=== PATIENT | female | born 1945 | race Two or more races ===

== ENCOUNTER 2022-05-04 10:56 | Outpatient (REF) | payer MEDICARE, MEDICAID, SELFPAY ==
--- NOTE | ~2022-05-04 | MM_ITS ---
EXAMINATION: MM SCREENING DIGITAL BREAST TOMOSYNTHESIS, BILATERAL CLINICAL INFORMATION: Screening. Asymptomatic. The lifetime risk of breast cancer based on the Tyrer-Cuzick Model is 4%. COMPARISON: Mammography: 07/17/2017, 05/27/2015 TECHNIQUE: Digital breast tomosynthesis is performed in both the craniocaudal and mediolateral oblique views along with computer-aided detection (CAD). Synthesized 2D images are generated from the tomosynthesis. FINDINGS: There are scattered areas of fibroglandular density (ACR BI-RADS breast composition Category b). There are no significant masses, abnormal calcifications, or other abnormalities. Parenchymal pattern is similar to prior studies. The axilla and skin contours are unremarkable. MM/MM tomosynthesis screening BI IMPRESSION: No mammographic evidence of malignancy. ASSESSMENT: BI-RADS 1: Negative RECOMMENDATION: Routine annual mammography screening. This patient's information was entered into a reminder system with a target due date for their next mammogram.
== END 2022-05-04 10:57 | disposition home or self-care (01) ==
LOC: HO.MAMMO 10:56
PROVIDERS: PCP Internal Medicine; Visit Provider Internal Medicine
DX: Z12.31 Encounter for screening mammogram for malignant neoplasm of breast (principal)
CPT/HCPCS: 77063; 77067

== ENCOUNTER 2022-06-01 12:02 | Outpatient (REF) | payer MEDICARE, MEDICAID, SELFPAY ==
[2022-06-01 14:12] LABS: Hematocrit 38.3 % (37.0-47.0); Mean Corpuscular HGB Conc 31.3 g/dl (31.0-35.0); Mean Corpuscular Hemoglobin 27.6 pg (27.0-33.0); Mean Platelet Volume 11.3 fL (9.4-12.3); Platelet Count 278 X10*3/uL (160-400); Red Blood Count 4.35 X10*6/uL (4.20-5.50); Red Cell Distribution Width 13.8 % (11.0-16.0)
[2022-06-01 14:23] LABS: Alanine Aminotransferase 9 U/L (0-31); Albumin Level 4.9 g/dL (3.5-5.0); Alkaline Phosphatase 87 U/L (39-117); Anion Gap 15 (12-20); Aspartate Amino Transferase 20 U/L (5-31); Bilirubin Total 0.3 mg/dL (0.0-1.0); Blood Urea Nitrogen 16 mg/dL (9-16); Calcium 10.1 mg/dL (8.4-10.2); Carbon Dioxide 29 mmol/L (22-29); Chloride 103 mmol/L (96-108); Cholesterol 209 mg/dL; Estimated Glomerular Filt Rate > 60; Glucose Fasting 100 mg/dL (60-99); HDL Cholesterol 68 mg/dL; LDL Cholesterol Calculated 123 mg/dl; Potassium 4.5 mmol/L (3.3-5.1); Sodium 142 mmol/L (135-145); Total Protein 7.7 g/dL (6.5-8.0); Triglycerides 93 mg/dL
[2022-06-01 14:44] LABS: TSH reflex Free T4 0.64 uIU/mL (0.32-4.0)
== END 2022-06-01 12:03 | disposition home or self-care (01) ==
LOC: HO.WFDLDS 12:02
PROVIDERS: Visit Provider Hospitalist
DX: Z00.00 Encounter for general adult medical examination without abnormal findings (principal)
CPT/HCPCS: 36415; 80053; 80061; 84443; 85027

== ENCOUNTER 2022-10-01 12:53 | Outpatient (REF) | payer MEDICARE, MEDICAID, SELFPAY ==
[2022-10-05 16:33] LABS: Vitamin D 25-OH, D2 <4 ng/mL; Vitamin D 25-OH, D3 18 ng/mL; Vitamin D 25-OH, Total 18 ng/mL (30-100)
== END 2022-10-01 12:54 | disposition home or self-care (01) ==
LOC: HO.LAB 12:53
PROVIDERS: PCP Hospitalist; Visit Provider Hospitalist
DX: E55.9 Vitamin D deficiency, unspecified (principal)
CPT/HCPCS: 36415; 82306

== ENCOUNTER 2023-06-18 15:50 | Outpatient (REF) | payer MEDICARE, MEDICAID, SELFPAY ==
--- NOTE | ~2023-06-18 | MM_ITS ---
EXAMINATION: MM SCREENING DIGITAL BREAST TOMOSYNTHESIS, BILATERAL CLINICAL INFORMATION: Screening. Asymptomatic. COMPARISON: Mammography: This study is compared with prior exams dating back to 2015. TECHNIQUE: Digital breast tomosynthesis is performed in both the craniocaudal and mediolateral oblique views along with computer-aided detection (CAD). Synthesized 2D images are generated from the tomosynthesis. FINDINGS: There are scattered areas of fibroglandular density (ACR BI-RADS breast composition Category b). There are no significant masses, abnormal calcifications, or other abnormalities. MM/MM tomosynthesis screening BI IMPRESSION: No mammographic evidence of malignancy. ASSESSMENT: BI-RADS BI-RADS 1 - Negative RECOMMENDATION: Routine annual mammography screening. 1 year F/U This examination should not preclude the clinical evaluation of a suspicious palpable abnormality. This patient's information was entered into a reminder system with a target due date for their next mammogram.
== END 2023-06-18 15:51 | disposition home or self-care (01) ==
LOC: HO.MAMMO 15:50
PROVIDERS: Visit Provider Hospitalist
DX: Z12.31 Encounter for screening mammogram for malignant neoplasm of breast (principal)
CPT/HCPCS: 77063; 77067

== ENCOUNTER → 2023-06-18 16:00 | Outpatient (BNV) | payer MEDICARE, MEDICAID, SELFPAY | PROVIDERS: Visit Provider Radiology Diagnostic Radiology | DX: Z12.31 Encounter for screening mammogram for malignant neoplasm of breast (principal) | CPT/HCPCS: 77063; 77067 ==

== ENCOUNTER 2023-07-26 12:57 | Outpatient (AMB) | payer MEDICARE, MEDICAID, SELFPAY ==
[2023-07-26 13:12] VITALS: BP 180/70; PULSE 66; RESP 13; TEMP 36.3; O2SAT 99; BMI 21.4
--- NOTE | 2023-07-26 13:12 | MHC.PC.OV ---
Vital Signs 07/26/23 13:12 Height 4 ft 9 in Weight 99 lb BMI 21.4 BP 180/70 H Blood Pressure Location Rt brachial Position Sitting Respiration 13 Pulse 66 Pulse Source Pulse Oximeter Temp 97.3 F Temp Source Temporal Artery Scan Pulse Oximetry (%) 99 Intake Visit Reasons: Transfer from -6M Follow up Intake Note: Patient is requestin muna if there is sanyway to get amlodipine and lisinopril to have more refills due to patient going to [place] [facility]. Patient states that her insurance hasnt covered her Vitamin D2 and would like alternative. 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 Accompanied by: Daughter Allergies No Known Allergies Allergy (Verified 07/26/23 13:43) Medication List - Last Reconciled 07/26/23 by Jose Trinidad CNP amlodipine 2.5 mg PO DAILY blood pressure monitor As directed cholecalciferol (vitamin D3) 1,250 mcg PO QWEEK lisinopril 20 mg PO DAILY Tobacco use date assessed: 07/26/23 Fall risk assessment: No Falls in past year Last assessed Fall Risk: 07/26/23 Dental Screening Dental Screen Date: 07/26/23 Did you have a dental visit in the last 12 months?: Yes Did you have a dental problem in the last 6 months where you did not have access to dental care?: No Was dental information given to patient?: Patient has dentist HPI HPI Comments History of Present Illness Details 77-year-old Togolese speaking female, accompanied by her daughter, presents for transfer of care Her former PCP is who is no longer with the practice She has history of hypertension and vitamin-D deficiency She is on amlodipine, lisinopril. She admits to taking her medications as prescribed without adverse reactions She notes she has not taken prescribed vitamin D3 because her health plan did not cover the medication. She has been taking otc vitamin supplement She notes that she was on four classes of antihypensives but her former PCP reduced it to 2 classes in an effort to wean off the medications She offers no complaints and denies acute symptoms at this time Last mammogram was in 06/2023: normal She notes that she no longer performs colonoscopy and pap smear test She states that her last dexa scan was 10 years ago: normal She is unsure whether she was vaccinated for PNA [facility] Medical History No pertinent past medical history Surgical History No pertinent past surgical history Social History Housing: House Patient Tobacco Use Status: Never used Tobacco e-Cigarette/Vaping Use: Never Used Second Hand Smoke Exposure: No service: No Current occupational status: retired Current occupational exposures/hazards: No Cognitive needs: No Hearing needs: No Vision needs: No Questionnaire Thrive Questionnaire Date Thrive assessed: 06/25/22 KWAKU-7 AMB Questionnaire KWAKU-7 Date KWAKU - 7 assessed: 06/01/22 Source: Developed by Drs. Woodrow Kimble, Lisandra Nichols, Yaya Stapleton and colleagues, with an educational andrea from [employer]. Review of Systems Const Details: Const Denies chills, Denies fatigue, Denies fever(s), Denies headache(s) and Denies weakness ENT Denies dizziness and Denies headache(s) Card Denies chest pain, Denies lightheadedness, Denies dyspnea and Denies other (Palpitations) Resp Denies cough, Denies dyspnea, Denies wheezing and Denies other ( shortness of breath) GI Denies abdominal pain, Denies melena, Denies hematochezia, Denies change in bowel habits, Denies dyspepsia and Denies nausea Denies hematuria and Denies dysuria Musc Denies abnormal gait, Denies myalgias, Denies arthralgias, Denies numbness and Denies tingling Skin/Breast Denies rash, Denies unusual bruising and Denies wounds Neuro Denies abnormal gait, Denies dizziness, Denies headache(s), Denies memory loss, Denies numbness, Denies Sensory deficit (Neuro), Denies tingling and Denies weakness Psych Denies anxiety, Denies depression, Denies memory loss Endo Denies cold intolerance, Denies fatigue, Denies heat intolerance, Denies polydipsia and Denies polyuria Aller/Immun Denies wheezing Physical exam (Primary Care) Vital Signs: Last Vital Signs Temp 97.3 F 07/26/23 13:12 Pulse 66 07/26/23 13:12 Resp 13 07/26/23 13:12 BP 180/70 H 07/26/23 13:12 Pulse Ox 99 07/26/23 13:12 BMI result Body Mass Index 21.4 Tobacco/Smoking Status: Tobacco use Status Tobacco use date assessed 07/26/23 07/26/23 13:25 Patient Tobacco Use Status Never used Tobacco 07/26/23 13:25 e-Cigarette/Vaping Use Never Used 07/26/23 13:25 Thrive Assessment: Date of Thrive Assessment Date Thrive assessed 06/25/22 07/26/23 13:25 Const Other: General: no acute distress and well developed Nutritional Appearance: well nourished Orientation/consciousness: patient oriented x3 HENMT Head: Yes normocephalic and Yes atraumatic Eyes General: appearance normal, both eyes and all related structures Pupils: Equal, round and reactive pupils present EOM: EOMs intact bilaterally Resp Effort & Inspection: normal respiratory effort Auscultation: clear to auscultation bilaterally Cardio Rate: regular rate Rhythm: regular rhythm Heart sounds: S1 normal heart sound present, S2 normal heart sound present, no gallops, no murmurs and no rubs GI Palpation (GI): No Abdominal aortic bruit present, Soft to palpation, nontender, No hepatosplenomegaly present and No Rebound tenderness present Auscultation: normal bowel sounds General: Yes no CVA tenderness Back/Spine/Pelvis Back: no CVA tenderness Cervical Spine: cervical ROM normal and No Cervical spine tenderness Thoracic/Lumbar Spine: thoraco-lumbar ROM normal, No pain with thoraco-lumbar ROM, No thoracic spinal tenderness and No lumbar spinal tenderness Extrem General: Yes normal to inspection, No edema and No calf tenderness Skin General: warm and dry. Normal skin color. Normal skin turgor Lesions: no lesions Rashes: no rashes Trauma: no lacerations or abrasions Wounds: no wounds Nails: normal Neuro General: patient oriented x3, gait normal and no focal neuro deficit Cranial nerves: Yes Equal, round and reactive pupils present Cognition (Neuro): normal cognition Gait exam (Neuro): Normal gait present Sensory Exam: No Sensory deficit (Neuro) Psych Appearance: grossly normal Affect: normal affect Attitude: cooperative Thought process: Normal thought process present Assessment and Plan Assessment & Plan (1) Hypertension: Code(s): I10 - Essential (primary) hypertension Qualifiers: Hypertension type: primary hypertension Qualified Code(s): I10 - Essential (primary) hypertension Plan: Resting blood pressure is 180/70, above goal of less than 140/90 Will increase amlodipine to 5 mg daily. Advised to take amlodipine and lisinopril as prescribed Low-sodium diet encouraged Follow-up for nurse visit for blood pressure check in 1 week Return in 2 weeks or sooner with symptoms or concerns Verbalized understanding and agreed with the treatment plan Interpretation by the patient's daughter per patient's preference (2) Laboratory tests ordered as part of a complete physical exam (CPE): Code(s): Z00.00 - Encounter for general adult medical examination without abnormal findings Plan: Fasting labs ordered as part of a complete physical exam. Advised to fast for at least 10 hours before getting labs drawn. May drink water Verbalized understanding and agreed with treatment plan. Orders: Orders Comprehensive [place]. Panel Fast Today Z00.00 - Encounter for general adult medical examination without abnormal findings Lipid Panel Today Z00.00 - Encounter for general adult medical examination without abnormal findings Complete Blood Count Auto Diff Today Z00.00 - Encounter for general adult medical examination without abnormal findings TSH reflex Free T4 Today Z00.00 - Encounter for general adult medical examination without abnormal findings UA CC w/rflx Micro + Cult Today Z00.00 - Encounter for general adult medical examination without abnormal findings Vitamin D 25-OH Total Today Z00.00 - Encounter for general adult medical examination without abnormal findings Medications: New amlodipine 5 mg PO DAILY 30 days 30 tabs 3RF Changed From lisinopril 20 mg PO DAILY 90 tabs 0RF I10 - Essential (primary) hypertension To lisinopril 20 mg PO DAILY I10 - Essential (primary) hypertension Coding Level of Care Code Est Pt Level 4 (61457) Diagnoses Primary hypertension I10 Hypertension type: primary hypertension Laboratory tests ordered as part of a complete physical exam (CPE) Z00.00
== END 2023-07-26 14:10 | disposition home or self-care (01) ==
PROVIDERS: PCP Nurse Practitioner Family; Visit Provider Nurse Practitioner Family
DX: I10 Essential (primary) hypertension (principal); Z00.00 Encounter for general adult medical examination without abnormal findings
CPT/HCPCS: 99214

== ENCOUNTER 2023-08-13 15:52 | Outpatient (AMB) | payer MEDICARE, MEDICAID, SELFPAY ==
[2023-08-13 15:55] VITALS: BP 174/68; PULSE 82; RESP 13; TEMP 36.6; O2SAT 99; BMI 21.4
--- NOTE | 2023-08-13 15:55 | MHC.PC.OV ---
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 Accompanied by: Daughter Allergies No Known Allergies Allergy (Verified 08/13/23 16:12) Medication List - Last Reconciled 08/13/23 by Jose Trinidad CNP amlodipine 5 mg PO DAILY 30 days blood pressure monitor As directed cholecalciferol (vitamin D3) 1,250 mcg PO QWEEK lisinopril 20 mg PO DAILY Tobacco use date assessed: 07/26/23 Fall risk assessment: No Falls in past year Last assessed Fall Risk: 08/13/23 Dental Screening Dental Screen Date: 08/13/23 Did you have a dental visit in the last 12 months?: Yes Did you have a dental problem in the last 6 months where you did not have access to dental care?: No Was dental information given to patient?: Patient has dentist HPI HPI Comments History of Present Illness Details 77-year-old Moroccan female, accompanied by her daughter, presents for hypertension follow-up She transferred care over 2 weeks ago. Amlodipine was increased to 5 mg daily. She was advised to take amlodipine and lisinopril as prescribed. She notes she has been taking her medications as prescribed without adverse reactions She did not follow-up for nurse visit for blood pressure check as planned. She notes that she was in [place] for a family emergency and returned yesterday She admits to eating significant amount of salt She notes that she is flying to [place] on 08/20/2023 and will return in 3 months She offers no complaints and denies acute symptoms at this time [facility] Medical History No pertinent past medical history Surgical History No pertinent past surgical history Social History Housing: House Patient Tobacco Use Status: Never used Tobacco e-Cigarette/Vaping Use: Never Used Second Hand Smoke Exposure: No service: No Current occupational status: retired Current occupational exposures/hazards: No Cognitive needs: No Hearing needs: No Vision needs: No Questionnaire Thrive Questionnaire Date Thrive assessed: 06/25/22 KWAKU-7 AMB Questionnaire KWAKU-7 Date KWAKU - 7 assessed: 06/01/22 Source: Developed by Drs. Woodrow Kimble, Lisandra Nichols, Yaya Stapleton and colleagues, with an educational andrea from [employer]. Review of Systems Const Details: Const Denies chills, Denies fatigue, Denies fever(s), Denies headache(s) and Denies weakness ENT Denies dizziness and Denies headache(s) Card Denies chest pain, Denies lightheadedness, Denies dyspnea and Denies other (Palpitations) Resp Denies cough, Denies dyspnea, Denies wheezing and Denies other ( shortness of breath) GI Denies abdominal pain, Denies melena, Denies hematochezia, Denies change in bowel habits, Denies dyspepsia and Denies nausea Denies hematuria and Denies dysuria Musc Denies abnormal gait, Denies myalgias, Denies arthralgias, Denies numbness and Denies tingling Skin/Breast Denies rash, Denies unusual bruising and Denies wounds Neuro Denies abnormal gait, Denies dizziness, Denies headache(s), Denies memory loss, Denies numbness, Denies Sensory deficit (Neuro), Denies tingling and Denies weakness Psych Denies anxiety, Denies depression, Denies memory loss Endo Denies cold intolerance, Denies fatigue, Denies heat intolerance, Denies polydipsia and Denies polyuria Aller/Immun Denies wheezing Physical exam (Primary Care) Vital Signs: Last Vital Signs Temp 97.8 F 08/13/23 15:55 Pulse 82 08/13/23 15:55 Resp 13 08/13/23 15:55 BP 174/68 H 08/13/23 15:55 Pulse Ox 99 08/13/23 15:55 Oxygen Delivery Method Room Air 08/13/23 15:55 BMI result Body Mass Index 21.4 Tobacco/Smoking Status: Tobacco use Status Tobacco use date assessed 07/26/23 08/13/23 16:00 Patient Tobacco Use Status Never used Tobacco 08/13/23 16:00 e-Cigarette/Vaping Use Never Used 08/13/23 16:00 Thrive Assessment: Date of Thrive Assessment Date Thrive assessed 06/25/22 08/13/23 16:00 Const Other: General: no acute distress and well developed Nutritional Appearance: well nourished Orientation/consciousness: patient oriented x3 HENMT Head: Yes normocephalic and Yes atraumatic Eyes General: appearance normal, both eyes and all related structures Pupils: Equal, round and reactive pupils present EOM: EOMs intact bilaterally Resp Effort & Inspection: normal respiratory effort Auscultation: clear to auscultation bilaterally Cardio Rate: regular rate Rhythm: regular rhythm Heart sounds: S1 normal heart sound present, S2 normal heart sound present, no gallops, no murmurs and no rubs GI Palpation (GI): No Abdominal aortic bruit present, Soft to palpation, nontender, No hepatosplenomegaly present and No Rebound tenderness present Auscultation: normal bowel sounds General: Yes no CVA tenderness Back/Spine/Pelvis Back: no CVA tenderness Cervical Spine: cervical ROM normal and No Cervical spine tenderness Thoracic/Lumbar Spine: thoraco-lumbar ROM normal, No pain with thoraco-lumbar ROM, No thoracic spinal tenderness and No lumbar spinal tenderness Extrem General: Yes normal to inspection, No edema and No calf tenderness Skin General: warm and dry. Normal skin color. Normal skin turgor Neuro General: patient oriented x3, gait normal and no focal neuro deficit Cranial nerves: Yes Equal, round and reactive pupils present Cognition (Neuro): normal cognition Gait exam (Neuro): Normal gait present Sensory Exam: No Sensory deficit (Neuro) Psych Appearance: grossly normal Affect: normal affect Attitude: cooperative Thought process: Normal thought process present Assessment and Plan Assessment & Plan (1) Hypertension: Code(s): I10 - Essential (primary) hypertension Qualifiers: Hypertension type: primary hypertension Qualified Code(s): I10 - Essential (primary) hypertension Plan: Resting blood pressure is 158/60, above goal of less than 140/90 Will increase amlodipine to 10 mg daily. Take as prescribed Continue to take lisinopril as prescribed Low-sodium diet and routine exercise encouraged Follow-up in 1 week or return sooner with symptoms or concerns Verbalized understanding and agreed with treatment plan Interpretation by the patient's daughter per patient's preference Medications: New amlodipine 10 mg PO DAILY 90 days 90 tabs 1RF miscellaneous medical supply 1 BP cuff and monitor for daily BP check 1 ea 0RF hypertension Changed From cholecalciferol (vitamin D3) 1,250 mcg PO QWEEK 14 caps 3RF E55.9 - Vitamin D deficiency, unspecified To cholecalciferol (vitamin D3) 1,250 mcg PO QWEEK E55.9 - Vitamin D deficiency, unspecified Discontinued amlodipine Discontinued Reason: Doctor's Order 5 mg PO DAILY 30 days 30 tabs 3RF Coding Level of Care Code Est Pt Level 3 (23324) Diagnoses Primary hypertension I10 Hypertension type: primary hypertension
[2023-08-13 16:11] VITALS: BP 158/60
== END 2023-08-13 16:25 | disposition home or self-care (01) ==
PROVIDERS: Visit Provider Nurse Practitioner Family
DX: I10 Essential (primary) hypertension (principal)
CPT/HCPCS: 99213

== ENCOUNTER 2023-08-15 10:18 | Outpatient (REF) | payer MEDICARE, MEDICAID, SELFPAY ==
[2023-08-15 10:45] LABS: MANUAL DIFF FLAG NO
[2023-08-15 11:02] LABS: Basophils Absolute Auto 0.1 X10*3/uL (0.0-0.2); Basophils Percent Auto 1.1 % (0-2); Eosinophils Absolute Auto 0.1 X10*3/uL (0.0-0.4); Eosinophils Percent Auto 0.9 % (0-4); Hematocrit 35.9 % (37.0-47.0); Hemoglobin 11.4 g/dl (12.0-16.0); Imm Gran Abs Auto 0.02 X10*3/uL (0.00-0.03); Imm Gran Pct Auto 0.2 % (0.0-0.4); Lymphocytes Absolute Auto 3.5 X10*3/uL (1.2-4.9); Lymphocytes Percent Auto 39.6 % (20-40); Mean Corpuscular HGB Conc 31.8 g/dl (31.0-35.0); Mean Corpuscular Hemoglobin 27.9 pg (27.0-33.0); Mean Platelet Volume 10.1 fL (9.4-12.3); Monocytes Absolute Auto 0.6 X10*3/uL (0.1-1.2); Monocytes Percent Auto 6.9 % (2-11); Neutrophils Absolute Auto 4.6 x10*3/uL (2.0-8.3); Neutrophils Percent Auto 51.3 % (45-73); Platelet Count 326 X10*3/uL (160-400); Red Blood Count 4.08 X10*6/uL (4.20-5.50); Red Cell Distribution Width 13.6 % (11.0-16.0); White Blood Count 8.9 X10*3/uL (4.8-10.8)
[2023-08-15 11:46] LABS: Alanine Aminotransferase 12 U/L (0-31); Albumin Level 4.8 g/dL (3.5-5.0); Alkaline Phosphatase 96 U/L (39-117); Anion Gap 14 (12-20); Aspartate Amino Transferase 20 U/L (5-31); Bilirubin Total 0.3 mg/dL (0.0-1.0); Blood Urea Nitrogen 23 mg/dL (9-16); Calcium 10.1 mg/dL (8.4-10.2); Carbon Dioxide 27 mmol/L (22-29); Chloride 105 mmol/L (96-108); Cholesterol 209 mg/dL (<200); Estimated Glomerular Filt Rate 57; Glucose Fasting 106 mg/dL (60-99); HDL Cholesterol 78 mg/dL (>40); LDL Cholesterol Calculated 118 mg/dL (<100); Potassium 3.8 mmol/L (3.3-5.1); Sodium 142 mmol/L (135-145); Triglycerides 68 mg/dL (<150)
[2023-08-15 12:04] LABS: Vitamin D 25-OH Total 31.5 ng/mL (>30)
[2023-08-15 14:02] LABS: Appearance Urine Cloudy; Color Urine Dark Yellow; Glucose Urine UA Negative (Negative); Leukocyte Esterase Urine Small (1+) (Negative); Nitrite Urine Negative (Negative); PH 5.5 (5.0-9.0); UMIC TRIGGER UACC YES; Urine Blood Negative (Negative); Urine Ketones Trace mg/dL (Negative); Urine Protein 30 (1+) mg/dL (Neg-Trace)
[2023-08-15 14:42] LABS: Bacteria Urine None Seen (None Seen); Calcium Oxalate Crystals Urine Present; Granular Casts Urine Present; Hyaline Casts Urine >20 /LPF (0-2); RBC Urine 0-2 /HPF (0-2); UACC Culture Trigger YES
== END 2023-08-15 10:19 | disposition home or self-care (01) ==
LOC: HO.LAB 10:18
PROVIDERS: PCP Nurse Practitioner Family
DX: Z00.00 Encounter for general adult medical examination without abnormal findings (principal); Z20.2 Contact with and (suspected) exposure to infections with a predominantly sexual mode of transmission
CPT/HCPCS: 36415; 80053; 80061; 81001; 81003; 82306; 84443; 85025; 87086

== ENCOUNTER 2023-10-16 15:01 | Outpatient (AMB) | payer MEDICARE, MEDICAID, SELFPAY ==
--- NOTE | 2023-10-16 15:05 | MHC.PC.OV ---
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 Required: No Accompanied by: daughter, grandchild Allergies No Known Allergies Allergy (Verified 10/16/23 15:32) Medication List - Last Reconciled 10/16/23 by Sheridan Maier MD amlodipine 10 mg PO DAILY 90 days blood pressure monitor As directed cholecalciferol (vitamin D3) 50 mcg PO DAILY 90 days lisinopril 20 mg PO DAILY miscellaneous medical supply 1 BP cuff and monitor for daily BP check Tobacco use date assessed: 10/16/23 Fall risk assessment: No Falls in past year Last assessed Fall Risk: 10/16/23 Dental Screening Dental Screen Date: 10/16/23 Did you have a dental visit in the last 12 months?: Yes Did you have a dental problem in the last 6 months where you did not have access to dental care?: No Was dental information given to patient?: Patient has dentist HPI HPI Comments History of Present Illness Details This is a 77-year-old female with hypertension and low vitamin-D that comes to establish care. Blood pressure stable. No chest pain or shortness of breath. Labs will be order to check vitamin-D levels. Accompanied by daughter. [facility] Medical History No pertinent past medical history Surgical History History of tubal ligation Family History Mother Diabetes Hypertension Father Alzheimer disease Social History Housing: House Patient Tobacco Use Status: Never used Tobacco e-Cigarette/Vaping Use: Never Used Second Hand Smoke Exposure: No service: No Current occupational status: retired Current occupational exposures/hazards: No Cognitive needs: No Hearing needs: No Vision needs: No Questionnaire PHQ-9 Over the last 2 weeks, how often have you been bothered by any of the following problems? 1. Little interest or pleasure in doing things: not at all 2. Feeling down, depressed, or hopeless: not at all 3. Trouble falling or staying asleep, or sleeping too much: not at all 4. Feeling tired or having little energy: not at all 5. Poor appetite or overeating: not at all 6. Feeling bad about yourself - or that you are a failure or have let yourself or your family down: not at all 7. Trouble concentrating on things, such as reading the newspaper or watching television: not at all 8. Moving or speaking so slowly that other people could have noticed. Or the opposite - being so fidgety or restless that you have been moving around a lot more than usual: not at all 9. Thoughts that you would be better off or of hurting yourself in some way: not at all Total score: 0 Depression Screening Interpretation: Negative Depression Screening Done: Yes 17432 - PHQ-9 Billing: Yes Source: Developed by Drs. Woodrow Kimble, Lisandra Nichols, Yaya Stapleton and colleagues, with an educational andrea from [employer]. Thrive Questionnaire Date Thrive assessed: 10/16/23 I am a: Patient What is your living situation today?: I have a steady place to live Within the past 12 months, did the food you bought not last and you didn't have the money to get more?: Never true Within the past 12 months, did you worry whether your food would run out before you got money to buy more?: Never true Do you have trouble paying for medicines?: No Do you have trouble getting transportation to medical appointments?: No Do you have trouble paying your heating and electricity bill?: No Do you have trouble taking care of your child, family member or friend?: No Do you have trouble with day-to-day activities such as bathing, preparing meals, shopping, managing finances, etc.?: No Are you currently unemployed and looking for a job?: No Are you interested in more education?: No Please select the resources that you would like help with: None Currently or been in a relationship where the following occur: no concerns reported THRIVE Score: 0 AUDIT C Alcohol Use Questionnaire (AUDIT-C) 1. How often do you have a drink containing alcohol?: Never Total Score: 0 KWAKU-7 AMB Questionnaire KWAKU-7 Date KWAKU - 7 assessed: 10/16/23 Feeling nervous, anxious, or on edge: 0 = Not at all Not being able to stop or control worryin = Not at all Worrying too much about different things: 0 = Not at all Trouble relaxin = Not at all Being so restless that it is hard to sit still: 0 = Not at all Becoming easily annoyed or irritable: 0 = Not at all Feeling afraid as if something awful might happen: 0 = Not at all Total KWAKU-7 score (0-4 normal; 5-9 mild; 10-14 moderate; 15-21 severe): 0 Source: Developed by Drs. Woodrow Kimble, Lisandra Nichols, Yaya Stapleton and colleagues, with an educational andrea from [employer]. KWAKU-7 Assessment Billing KWAKU-7 Assessment Tool: KWAKU-7 Assessment 17886 Review of Systems Const All systems reviewed & are unremarkable except as noted in HPI and below Eyes Reports no additional complaints, Denies change in vision and Denies other visual disturbances Card Denies chest pain at rest, Denies chest pain with activity, Denies edema, Denies irregular heart rhythm, Denies claudication, Denies dyspnea, Denies dyspnea on exertion, Denies orthopnea, Denies paroxysmal nocturnal dyspnea and Denies slow heart rate Resp Denies cough, Denies dyspnea and Denies dyspnea on exertion GI Denies abdominal pain, Denies change in bowel habits, Denies excessive flatus, Denies nausea and Denies vomiting Denies urinary incontinence, Denies urinary hesitancy and Denies urinary urgency Musc Denies abnormal gait, Denies atrophy, Denies deformity and Denies limited range of motion Skin/Breast Denies bleeding lesions, Denies changing lesions and Denies rash Neuro Denies abnormal gait, Denies behavioral changes and Denies lack of coordination Psych Denies behavioral changes Physical exam (Primary Care) Vital Signs: Last Vital Signs BP 138/62 10/16/23 15:07 BMI result Body Mass Index 21.0 Tobacco/Smoking Status: Tobacco use Status Tobacco use date assessed 10/16/23 10/16/23 15:16 Patient Tobacco Use Status Never used Tobacco 10/16/23 15:16 e-Cigarette/Vaping Use Never Used 10/16/23 15:16 PHQ-9: PHQ-9 Score PHQ-9: Total score 0 10/16/23 15:16 Depression Screening Interpretation: Negative Thrive Assessment: Date of Thrive Assessment Date Thrive assessed 10/16/23 10/16/23 15:16 Currently or been in a relationship where the following occur: no concerns reported Eyes General: appearance normal, both eyes and all related structures Eyelids: Yes eyelids normal Conjunctivae: conjunctivae normal Neck Neck: Yes normal visual inspection and Yes supple Resp Effort & Inspection: normal respiratory effort Auscultation: clear to auscultation bilaterally Cardio Jugular venous distension: no JVD Rate: regular rate Rhythm: regular rhythm Heart sounds: S1 normal heart sound present and S2 normal heart sound present Extrem General: Yes full ROM Assessment and Plan Assessment & Plan (1) Hypertension: Code(s): I10 - Essential (primary) hypertension Qualifiers: Hypertension type: primary hypertension Qualified Code(s): I10 - Essential (primary) hypertension Plan: Continue lisinopril and amlodipine. Blood pressure goal is equal or less than 130/80. (2) Vitamin D deficiency: Code(s): E55.9 - Vitamin D deficiency, unspecified Plan: Continue vitamin-D supplement. Orders: Orders Comprehensive [place]. Panel Fast Today I10 - Essential (primary) hypertension Lipid Panel Today I10 - Essential (primary) hypertension Vitamin D 25-OH Total Today E55.9 - Vitamin D deficiency, unspecified Medications: Changed From lisinopril 20 mg PO DAILY I10 - Essential (primary) hypertension To lisinopril 20 mg PO DAILY 90 days 90 tabs 1RF I10 - Essential (primary) hypertension Refilled blood pressure monitor As directed 1 ea 0RF check bp twice a day I10 - Essential (primary) hypertension amlodipine 10 mg PO DAILY 90 days 90 tabs 1RF cholecalciferol (vitamin D3) 50 mcg PO DAILY 90 days 90 caps 2RF Coding Level of Care Code New Pt Level 3 (98120) Diagnoses Primary hypertension I10 Hypertension type: primary hypertension Vitamin D deficiency E55.9 Additional Codes KWAKU-7 Assessment Billing - KWAKU-7 Assessment Tool: KWAKU-7 Assessment 99845 ([id number]) Time Spent (min) 20
[2023-10-16 15:07] VITALS: BP 138/62; BMI 21.0
== END 2023-10-16 15:37 | disposition home or self-care (01) ==
PROVIDERS: PCP Nurse Practitioner Family; Visit Provider Internal Medicine
DX: I10 Essential (primary) hypertension (principal); E55.9 Vitamin D deficiency, unspecified
CPT/HCPCS: 99203

== ENCOUNTER 2023-10-18 12:21 | Outpatient (REF) | payer MEDICARE, MEDICAID, SELFPAY ==
[2023-10-18 14:12] LABS: Alanine Aminotransferase 12 U/L (0-31); Alkaline Phosphatase 91 U/L (39-117); Anion Gap 13 (12-20); Aspartate Amino Transferase 21 U/L (5-31); Bilirubin Total 0.4 mg/dL (0.0-1.0); Blood Urea Nitrogen 20 mg/dL (9-16); Calcium 10.1 mg/dL (8.4-10.2); Carbon Dioxide 25 mmol/L (22-29); Chloride 108 mmol/L (96-108); Cholesterol 195 mg/dL (<200); Estimated Glomerular Filt Rate > 60; Glucose Fasting 90 mg/dL (60-99); HDL Cholesterol 68 mg/dL (>40); LDL Cholesterol Calculated 110 mg/dL (<100); Potassium 4.1 mmol/L (3.3-5.1); Sodium 142 mmol/L (135-145); Total Protein 8.1 g/dL (6.5-8.0); Triglycerides 86 mg/dL (<150)
[2023-10-18 14:31] LABS: Vitamin D 25-OH Total 33.9 ng/mL (>30)
== END 2023-10-18 12:22 | disposition home or self-care (01) ==
LOC: HO.HMGCLDS 12:21
PROVIDERS: PCP Internal Medicine; Visit Provider Internal Medicine
DX: I10 Essential (primary) hypertension (principal); E55.9 Vitamin D deficiency, unspecified
CPT/HCPCS: 36415; 80053; 80061; 82306

== ENCOUNTER 2024-03-12 09:50 | Outpatient (AMB) | payer MEDICARE, MEDICAID, SELFPAY ==
[2024-03-12 10:08] VITALS: BP 138/64
--- NOTE | 2024-03-12 10:08 | MHC.PC.OV ---
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 Accompanied by: Daughter Allergies No Known Allergies Allergy (Verified 03/12/24 10:30) Medication List - Last Reconciled 03/12/24 by Sheridan Maier MD amlodipine 10 mg PO DAILY 90 days blood pressure monitor As directed cholecalciferol (vitamin D3) 50 mcg PO DAILY 90 days lisinopril 20 mg PO DAILY 90 days miscellaneous medical supply 1 BP cuff and monitor for daily BP check Tobacco use date assessed: 10/16/23 Fall risk assessment: No Falls in past year Last assessed Fall Risk: 03/12/24 Dental Screening Dental Screen Date: 10/16/23 HPI HPI Comments History of Present Illness Details This is a 78-year-old female that comes accompanied by daughter for her physical exam. She declines pneumococcal vaccine and Td vaccine. Labs were discussed and cholesterol medication will be added. Complains of muscle cramps in legs that happens occasionally and I will add magnesium. No chest pain or shortness on breath. [facility] Medical History (Updated 03/12/24 @ 10:43 by Sheirdan Maier MD) No pertinent past medical history Surgical History History of tubal ligation Family History Mother Diabetes Hypertension Father Alzheimer disease Social History Housing: House Patient Tobacco Use Status: Never used Tobacco e-Cigarette/Vaping Use: Never Used Second Hand Smoke Exposure: No service: No Current occupational status: retired Current occupational exposures/hazards: No Cognitive needs: No Hearing needs: No Vision needs: No Questionnaire Thrive Questionnaire Date Thrive assessed: 10/16/23 KWAKU-7 AMB Questionnaire KWAKU-7 Date KWAKU - 7 assessed: 10/16/23 Source: Developed by Drs. Woodrow Kimble, Lisandra Nichols, Yaya Stapleton and colleagues, with an educational andrea from [employer] Review of Systems Const All systems reviewed & are unremarkable except as noted in HPI and below Card Denies chest pain at rest, Denies chest pain with activity, Denies edema, Denies irregular heart rhythm, Denies claudication, Denies dyspnea, Denies dyspnea on exertion, Denies orthopnea, Denies paroxysmal nocturnal dyspnea and Denies slow heart rate Resp Denies cough, Denies dyspnea and Denies dyspnea on exertion GI Denies abdominal pain, Denies change in bowel habits, Denies excessive flatus, Denies nausea and Denies vomiting Denies urinary incontinence, Denies urinary hesitancy and Denies urinary urgency Musc Denies abnormal gait, Denies atrophy, Denies deformity and Denies limited range of motion Skin/Breast Denies bleeding lesions, Denies changing lesions and Denies rash Neuro Denies abnormal gait, Denies behavioral changes and Denies lack of coordination Psych Denies behavioral changes Physical exam (Primary Care) Vital Signs: Last Vital Signs BP 138/64 03/12/24 10:08 BMI result Body Mass Index 20.0 Tobacco/Smoking Status: Tobacco use Status Tobacco use date assessed 10/16/23 03/12/24 10:14 Patient Tobacco Use Status Never used Tobacco 03/12/24 10:14 e-Cigarette/Vaping Use Never Used 03/12/24 10:14 Thrive Assessment: Date of Thrive Assessment Date Thrive assessed 10/16/23 03/12/24 10:14 HENMN Head: Yes normal to inspection, Yes normocephalic and Yes atraumatic Ears: external ears normal Eyes General: appearance normal, both eyes and all related structures Eyelids: Yes eyelids normal Conjunctivae: conjunctivae normal Neck Neck: Yes normal visual inspection and Yes supple Resp Effort & Inspection: normal respiratory effort Auscultation: clear to auscultation bilaterally Cardio Jugular venous distension: no JVD Rate: regular rate Rhythm: regular rhythm Heart sounds: S1 normal heart sound present and S2 normal heart sound present GI Inspection: Yes normal to inspection Palpation (GI): Soft to palpation and nontender Auscultation: normal bowel sounds Skin General skin exam: no rashes or lesions noted Neuro General: no focal motor deficits Extrem General: Yes full ROM Psych Appearance: grossly normal Assessment and Plan Assessment & Plan (1) Physical exam: Code(s): Z00.00 - Encounter for general adult medical examination without abnormal findings Plan: Repeat in a year. (2) Muscle cramps: Code(s): R25.2 - Cramp and spasm Plan: Start magnesium. Orders: Orders Vitamin D 25-OH Total 6 Months E55.9 - Vitamin D deficiency, unspecified XR DEXA axial skeleton Today N95.9 - Unspecified menopausal and perimenopausal disorder Lipid Panel 6 Months E78.5 - Hyperlipidemia, unspecified Comprehensive [place]. Panel Fast 6 Months Z00.00 - Encounter for general adult medical examination without abnormal findings Medications: Refilled cholecalciferol (vitamin D3) 50 mcg PO DAILY 90 days 90 caps 2RF Review Patient declined Pneumococcal Vaccine: 03/12/24 Declined TDap/Td: 03/12/24 Coding Level of Care Code Est Pt Level 3 (21827) Est Pt Prev Care >65y(96399) Diagnoses Physical exam Z00.00 Muscle cramps R25.2 Time Spent (min) 32
== END 2024-03-12 10:41 | disposition home or self-care (01) ==
PROVIDERS: PCP Nurse Practitioner Family; Visit Provider Internal Medicine
DX: Z00.00 Encounter for general adult medical examination without abnormal findings (principal); R25.2 Cramp and spasm
CPT/HCPCS: 99213; 99397

== ENCOUNTER 2024-11-18 16:20 | Outpatient (AMB) | payer MEDICARE, MEDICAID, SELFPAY ==
--- NOTE | 2024-11-18 16:25 | MHC.PC.OV ---
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 Accompanied by: Daughter Allergies No Known Allergies Allergy (Verified 11/18/24 16:37) Medication List - Last Reconciled 11/18/24 by Sheridan Maier MD amlodipine 10 mg PO DAILY 90 days blood pressure monitor As directed lisinopril 20 mg PO DAILY 90 days magnesium oxide 400 mg PO DAILY 90 days miscellaneous medical supply 1 BP cuff and monitor for daily BP check Tobacco use date assessed: 11/18/24 Fall risk assessment: No Falls in past year Last assessed Fall Risk: 11/18/24 Dental Screening Dental Screen Date: 11/18/24 Did you have a dental visit in the last 12 months?: No Did you have a dental problem in the last 6 months where you did not have access to dental care?: No Was dental information given to patient?: Patient has dentist HPI HPI Comments History of Present Illness Details The patient is a 78-year-old female presenting for follow up on hypertension management and evaluation for possible anemia. She currently takes amlodipine and lisinopril for blood pressure control, with her current readings indicating successful management. She has experienced low hemoglobin levels in the past, which requires further evaluation as specific details and timelines were not addressed during this visit. The patient denies recent or past incidences of bleeding or presence of blood in urine, although she has had indications of protein in her urine and requires reassessment for this concern. In terms of her diet and supplements, she occasionally takes magnesium, primarily for nocturnal leg cramps, potentially hinting at a need to evaluate her electrolyte levels. She was questioned about her vaccination history for pneumonia, understanding the importance of this preventive measure beyond the age of 65. During the evaluation, urinary crystals were mentioned, with a need to further assess them for any development of kidney stones. Overall, the discussion acknowledged well-controlled hypertension through current pharmacotherapy and a preventative approach towards her health maintenance, such as assessing anemia, determining urinary crystal significance, and confirming vaccination status. [facility] Medical History (Updated 11/18/24 @ 16:46 by Sheridan Maier MD) No pertinent past medical history Surgical History History of tubal ligation Family History Mother Diabetes Hypertension Father Alzheimer disease Social History Housing: House Patient Tobacco Use Status: Never used Tobacco e-Cigarette/Vaping Use: Never Used Second Hand Smoke Exposure: No service: No Current occupational status: retired Current occupational exposures/hazards: No Cognitive needs: No Hearing needs: No Vision needs: No Questionnaire PHQ-9 Over the last 2 weeks, how often have you been bothered by any of the following problems? 1. Little interest or pleasure in doing things: not at all 2. Feeling down, depressed, or hopeless: not at all 3. Trouble falling or staying asleep, or sleeping too much: not at all 4. Feeling tired or having little energy: not at all 5. Poor appetite or overeating: not at all 6. Feeling bad about yourself - or that you are a failure or have let yourself or your family down: not at all 7. Trouble concentrating on things, such as reading the newspaper or watching television: not at all 8. Moving or speaking so slowly that other people could have noticed. Or the opposite - being so fidgety or restless that you have been moving around a lot more than usual: not at all 9. Thoughts that you would be better off or of hurting yourself in some way: not at all Total score: 0 Depression Screening Interpretation: Negative Depression Screening Done: Yes 83823 - PHQ-9 Billing: Yes Source: Developed by Drs. Woodrow Kimble, Lisandra Nichols, Yaya Stapleton and colleagues, with an educational andrea from [employer] Thrive Questionnaire Date Thrive assessed: 10/16/23 KWAKU-7 AMB Questionnaire KWAKU-7 Date KWAKU - 7 assessed: 11/18/24 Feeling nervous, anxious, or on edge: 0 = Not at all Not being able to stop or control worryin = Not at all Worrying too much about different things: 0 = Not at all Trouble relaxin = Not at all Being so restless that it is hard to sit still: 0 = Not at all Becoming easily annoyed or irritable: 0 = Not at all Feeling afraid as if something awful might happen: 0 = Not at all Total KWAKU-7 score (0-4 normal; 5-9 mild; 10-14 moderate; 15-21 severe): 0 Source: Developed by Drs. Woodrow Kimble, Lisandra Nichols, Yaya Stapleton and colleagues, with an educational andrea from [employer] KWAKU-7 Assessment Billing KWAKU-7 Assessment Tool: KWAKU-7 Assessment 41189 Review of Systems Const All systems reviewed & are unremarkable except as noted in HPI and below Card Denies chest pain at rest, Denies chest pain with activity, Denies edema, Denies irregular heart rhythm, Denies claudication, Denies dyspnea, Denies dyspnea on exertion, Denies orthopnea, Denies paroxysmal nocturnal dyspnea and Denies slow heart rate Resp Denies cough, Denies dyspnea and Denies dyspnea on exertion GI Denies abdominal pain, Denies change in bowel habits, Denies excessive flatus, Denies nausea and Denies vomiting Physical exam (Primary Care) Vital Signs: Last Vital Signs BP 136/74 11/18/24 16:29 BMI result Body Mass Index 20.1 Tobacco/Smoking Status: Tobacco use Status Tobacco use date assessed 11/18/24 11/18/24 16:33 Patient Tobacco Use Status Never used Tobacco 11/18/24 16:26 e-Cigarette/Vaping Use Never Used 11/18/24 16:26 PHQ-9: PHQ-9 Score PHQ-9: Total score 0 11/18/24 16:29 Depression Screening Interpretation: Negative Thrive Assessment: Date of Thrive Assessment Date Thrive assessed 10/16/23 11/18/24 16:26 Resp Effort & Inspection: normal respiratory effort Auscultation: clear to auscultation bilaterally Cardio Jugular venous distension: no JVD Rate: regular rate Rhythm: regular rhythm Heart sounds: S1 normal heart sound present and S2 normal heart sound present Extrem General: Yes full ROM Coding Level of Care Code Est Pt Level 4 (12851) Complex EM visit Add On G2211 Diagnoses 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 R82.998 Essential hypertension I10 Vitamin D deficiency E55.9 Proteinuria R80.9 Anemia D64.9 Muscle cramps R25.2 Additional Codes PHQ-9 - 63659 - PHQ-9 Billing: Yes ([id number]) KWAKU-7 Assessment Billing - KWAKU-7 Assessment Tool: KWAKU-7 Assessment 11048 ([id number]) Time Spent (min) 22 Assessment & Plan Assessment & Plan (1) 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: Code(s): R82.998 - Other abnormal findings in urine Category: Medical (2) Essential hypertension: Code(s): I10 - Essential (primary) hypertension Category: Medical (3) Vitamin D deficiency: Code(s): E55.9 - Vitamin D deficiency, unspecified Category: Medical (4) Proteinuria: Code(s): R80.9 - Proteinuria, unspecified Category: Medical (5) Anemia: Code(s): D64.9 - Anemia, unspecified Category: Medical (6) Muscle cramps: Code(s): R25.2 - Cramp and spasm Category: Medical Plan The patient continues on her current hypertension regimen with amlodipine and lisinopril, which effectively controls her blood pressure. We plan to assess her hemoglobin levels due to a history of low hemoglobin, alongside evaluating urinary proteins and crystals as part of her renal assessment. The role of magnesium in her regimen will be monitored considering her leg cramps. Additionally, confirming her pneumonia vaccination status remains a preventive priority. The patient's overall health plan will proceed with careful monitoring and strategic preventive care. Patient was informed and verbally consented to the use of an ambient scribe for clinic note documentation during this visit. I discussed with the patient her current medication regimen for hypertension, which is effectively controlling her condition. Plans to re-evaluate her hemoglobin levels and assess urinary issues were clearly outlined to address potential anemia and renal health. We discussed the importance of the pneumonia vaccine due to her age, ensuring adherence to recommended preventive measures. I emphasized continual monitoring of her health conditions through periodic evaluations and lifestyle modifications, supporting her preventative healthcare strategy. Orders: Orders Complete Blood Count Auto Diff Today D64.9 - Anemia, unspecified IRON PROFILE Today D64.9 - Anemia, unspecified Lipid Panel Today E78.5 - Hyperlipidemia, unspecified Vitamin D 25-OH Total Today E55.9 - Vitamin D deficiency, unspecified Magnesium Today R25.2 - Cramp and spasm XR KUB Today R82.998 - Other abnormal findings in urine UA CC w/rflx Micro + Cult Today R30.0 - Dysuria Patient Instructions: - Continue amlodipine and lisinopril as prescribed daily for blood pressure control. - Undergo lab tests for hemoglobin levels and renal function assessment. - Consider updating pneumonia vaccine status in line with age recommendations. - Monitor leg cramps while taking magnesium supplements as needed. - Maintain regular exercise and active lifestyle habits. - Follow up as discussed for lab results and further evaluations.
[2024-11-18 16:29] VITALS: BP 136/74; BMI 20.1
== END 2024-11-18 16:47 | disposition home or self-care (01) ==
LOC: HO.HMCH 16:21
PROVIDERS: PCP Internal Medicine; Visit Provider Internal Medicine
DX: R82.998 Other abnormal findings in urine (principal); I10 Essential (primary) hypertension; E55.9 Vitamin D deficiency, unspecified; R80.9 Proteinuria, unspecified; D64.9 Anemia, unspecified; R25.2 Cramp and spasm

== ENCOUNTER → 2024-11-18 16:20 | Outpatient (BNVA) | payer OTHER, SELFPAY | PROVIDERS: PCP Internal Medicine; Visit Provider Internal Medicine | DX: I10 Essential (primary) hypertension (principal); R82.998 Other abnormal findings in urine; E55.9 Vitamin D deficiency, unspecified; R80.9 Proteinuria, unspecified; D64.9 Anemia, unspecified; R25.2 Cramp and spasm; Z79.899 Other long term (current) drug therapy | CPT/HCPCS: 96127; 99212 ==

== ENCOUNTER 2024-11-24 10:22 | Outpatient (REF) | payer OTHER, SELFPAY ==
--- NOTE | ~2024-11-24 | XR_ITS ---
EXAMINATION: XR ABDOMEN KUB CLINICAL INDICATION: R82.998 - Other abnormal findings in urine COMPARISON: None available. TECHNIQUE: AP view of the abdomen. FINDINGS: Bowel gas pattern is normal/nonspecific. There is no focally dilated loop. No definite abnormal soft tissue calcifications identified. No organomegaly. Lung bases appear clear. Osseous structures appear normal. XR/XR KUB IMPRESSION: Normal KUB radiograph. Electronically signed by: Madhu Messina MD 11/25/2024 09:54 AM EDT
[2024-11-24 13:14] LABS: MANUAL DIFF FLAG NO
[2024-11-24 13:30] LABS: Basophils Absolute Auto 0.1 X10*3/uL (0.0-0.2); Basophils Percent Auto 0.7 % (0-2); Eosinophils Absolute Auto 0.1 X10*3/uL (0.0-0.4); Eosinophils Percent Auto 1.7 % (0-4); Hematocrit 35.2 % (37.0-47.0); Imm Gran Abs Auto 0.02 X10*3/uL (0.00-0.03); Imm Gran Pct Auto 0.3 % (0.0-0.4); Lymphocytes Absolute Auto 2.4 X10*3/uL (1.2-4.9); Lymphocytes Percent Auto 33.3 % (20-40); Mean Corpuscular HGB Conc 31.3 g/dl (31.0-35.0); Mean Corpuscular Hemoglobin 27.4 pg (27.0-33.0); Mean Corpuscular Volume 87.6 fL (80.0-98.0); Mean Platelet Volume 10.9 fL (9.4-12.3); Monocytes Absolute Auto 0.5 X10*3/uL (0.1-1.2); Monocytes Percent Auto 6.5 % (2-11); Neutrophils Absolute Auto 4.2 x10*3/uL (2.0-8.3); Neutrophils Percent Auto 57.5 % (45-73); Platelet Count 346 X10*3/uL (160-400); Red Blood Count 4.02 X10*6/uL (4.20-5.50); Red Cell Distribution Width 13.2 % (11.0-16.0); White Blood Count 7.2 X10*3/uL (4.8-10.8)
[2024-11-24 13:40] LABS: Appearance Urine Clear; Color Urine Yellow; Glucose Urine UA Negative (Negative); Leukocyte Esterase Urine Moderate (2+) (Negative); Nitrite Urine Negative (Negative); PH 5.5 (5.0-9.0); UMIC TRIGGER UACC YES; Urine Blood Negative (Negative); Urine Ketones Trace mg/dL (Negative); Urine Protein Trace mg/dL (Neg-Trace)
[2024-11-24 13:48] LABS: Bacteria Urine None Seen (None Seen); Hyaline Casts Urine 0-2 /LPF (0-2); RBC Urine 0-2 /HPF (0-2); UACC Culture Trigger YES
[2024-11-24 13:57] LABS: Cholesterol 174 mg/dL (<200); HDL Cholesterol 65 mg/dL (>40); Iron 112 mcg/dL (30-160); LDL Cholesterol Calculated 97 mg/dL (<100); Percent Iron Saturation 37 % (15-50); Total Iron Binding Capacity 302 mcg/dL (228-428); Triglycerides 61 mg/dL (<150); Unsaturated Iron Binding 190 ug/dL
[2024-11-24 14:14] LABS: Vitamin D 25-OH Total 31.3 ng/mL (>30)
== END 2024-11-24 10:23 | disposition home or self-care (01) ==
LOC: HO.HMGCX 10:22
PROVIDERS: PCP Internal Medicine; Visit Provider Internal Medicine
DX: R82.998 Other abnormal findings in urine (principal); D64.9 Anemia, unspecified; E78.5 Hyperlipidemia, unspecified; E55.9 Vitamin D deficiency, unspecified; R25.2 Cramp and spasm
CPT/HCPCS: 36415; 74018; 80061; 81001; 82306; 83540; 83735; 85025; 87086

== ENCOUNTER → 2024-11-24 10:26 | Outpatient (BNV) | payer OTHER, SELFPAY | PROVIDERS: PCP Internal Medicine; Visit Provider Radiology Diagnostic Radiology | DX: R82.998 Other abnormal findings in urine (principal) | CPT/HCPCS: 74018 ==

== ENCOUNTER 2025-01-01 10:57 | Outpatient (REF) | payer MEDICARE, MEDICAID, SELFPAY | END 2025-01-01 10:58 | disposition home or self-care (01) | LOC: HO.MAMMO 10:57 | PROVIDERS: PCP Internal Medicine; Visit Provider Internal Medicine | DX: Z12.31 Encounter for screening mammogram for malignant neoplasm of breast (principal) | CPT/HCPCS: 77063; 77067 ==

== ENCOUNTER → 2025-01-01 11:15 | Outpatient (BNV) | payer MEDICARE, MEDICAID, SELFPAY | PROVIDERS: PCP Internal Medicine; Visit Provider Internal Medicine | DX: Z12.31 Encounter for screening mammogram for malignant neoplasm of breast (principal) | CPT/HCPCS: 77063; 77067 ==

== ENCOUNTER 2025-03-15 09:01 | Outpatient (AMB) | payer MEDICARE, MEDICAID, SELFPAY ==
--- NOTE | 2025-03-15 09:15 | MHC.PC.OV ---
Vital Signs 03/15/25 09:16 03/15/25 09:43 Height 4 ft 9 in Weight 94 lb 6 oz BMI 20.4 BP 130/58 L 130/60 Blood Pressure Location Lt brachial Lt brachial Position Sitting Sitting Respiration 18 Pulse 62 Pulse Source Pulse Oximeter Temp 97 F Temp Source Temporal Artery Scan Pulse Oximetry (%) 97 Oxygen Delivery Method Room Air Intake Visit Reasons: annual - see comments Air Pollution Auditor Required: No Accompanied by: Daughter Allergies No Known Allergies Allergy (Verified 03/15/25 09:43) Medication List - Last Reconciled 03/15/25 by Sheridan Maier MD amlodipine 10 mg PO DAILY 90 days blood pressure monitor As directed lisinopril 20 mg PO DAILY 90 days magnesium oxide 400 mg PO DAILY 90 days miscellaneous medical supply 1 BP cuff and monitor for daily BP check Tobacco use date assessed: 03/15/25 Fall risk assessment: No Falls in past year Last assessed Fall Risk: 03/15/25 Dental Screening Dental Screen Date: 03/15/25 Did you have a dental visit in the last 12 months?: Yes Did you have a dental problem in the last 6 months where you did not have access to dental care?: No Was dental information given to patient?: Patient has dentist HPI HPI Comments History of Present Illness Details The patient is a 79-year-old female presenting for an annual physical examination and preventative care. Declines pneumonia and tetanus vaccine. No need for colonoscopy due to age over 75 years old. The patient has a history of essential hypertension, for which she is currently taking amlodipine 10 mg and lisinopril 20 mg daily. She reports that her blood pressure was previously uncontrolled but is now well-managed with her current medication regimen. The patient experiences heartburn and has been using adwo-acs-fyrblip medications to manage her symptoms. She requested a prescription to help with the cost of these medications. The patient has a history of low hemoglobin, with the last recorded level being 11 g/dL in November. She denies any active bleeding and has been advised to take iron supplements, which may cause constipation. In terms of family history, her father had Alzheimer's disease, and her mother had diabetes and hypertension. The patient does not smoke or consume alcohol. The patient is physically active, engaging in regular walking and exercises, and maintains a healthy weight. [facility] Medical History (Updated 03/15/25 @ 09:49 by Sheridan Maier MD) No pertinent past medical history Surgical History History of tubal ligation Family History Mother Diabetes Hypertension Father Alzheimer disease Social History Housing: House Patient Tobacco Use Status: Never used Tobacco e-Cigarette/Vaping Use: Never Used Second Hand Smoke Exposure: No service: No Current occupational status: retired Current occupational exposures/hazards: No Cognitive needs: No Hearing needs: No Vision needs: No Questionnaire PHQ-9 Over the last 2 weeks, how often have you been bothered by any of the following problems? 1. Little interest or pleasure in doing things: not at all 2. Feeling down, depressed, or hopeless: not at all 3. Trouble falling or staying asleep, or sleeping too much: not at all 4. Feeling tired or having little energy: not at all 5. Poor appetite or overeating: not at all 6. Feeling bad about yourself - or that you are a failure or have let yourself or your family down: not at all 7. Trouble concentrating on things, such as reading the newspaper or watching television: not at all 8. Moving or speaking so slowly that other people could have noticed. Or the opposite - being so fidgety or restless that you have been moving around a lot more than usual: not at all 9. Thoughts that you would be better off or of hurting yourself in some way: not at all Total score: 0 Depression Screening Interpretation: Negative Depression Screening Done: Yes 95423 - PHQ-9 Billing: Yes Source: Developed by Drs. Woodrow Kimble, Lisandra Nichols, Yaya Stapleton and colleagues, with an educational andrea from [employer]. Thrive Questionnaire Date Thrive assessed: 03/15/25 I am a: Patient What is your living situation today?: I have a steady place to live Within the past 12 months, did the food you bought not last and you didn't have the money to get more?: Never true Within the past 12 months, did you worry whether your food would run out before you got money to buy more?: Never true Do you have trouble paying for medicines?: Yes Do you have trouble getting transportation to medical appointments?: No Do you have trouble paying your heating and electricity bill?: No Do you have trouble taking care of your child, family member or friend?: I choose not to answer this question Do you have trouble with day-to-day activities such as bathing, preparing meals, shopping, managing finances, etc.?: I choose not to answer this question Are you currently unemployed and looking for a job?: I choose not to answer this question Are you interested in more education?: No Please select the resources that you would like help with: None Currently or been in a relationship where the following occur: I choose not to answer THRIVE Score: 0 AUDIT C Alcohol Use Questionnaire (AUDIT-C) 1. How often do you have a drink containing alcohol?: Never 3. How often do you have six or more drinks on one occasion?: Never Total Score: 0 Score Reviewed/Action Taken: No KWAKU-7 AMB Questionnaire KWAKU-7 Date KWAKU - 7 assessed: 03/15/25 Feeling nervous, anxious, or on edge: 1 = Several days Not being able to stop or control worryin = Not at all Worrying too much about different things: 0 = Not at all Trouble relaxin = Not at all Being so restless that it is hard to sit still: 0 = Not at all Becoming easily annoyed or irritable: 0 = Not at all Feeling afraid as if something awful might happen: 0 = Not at all Total KWAKU-7 score (0-4 normal; 5-9 mild; 10-14 moderate; 15-21 severe): 1 Source: Developed by Drs. Woodrow Kimble, Lisandra Nichols, Yaya Stapleton and colleagues, with an educational andrea from [employer]. KWAKU-7 Assessment Billing KWAKU-7 Assessment Tool: KWAKU-7 Assessment 84842 Review of Systems Const All systems reviewed & are unremarkable except as noted in HPI and below Card Denies chest pain at rest, Denies chest pain with activity, Denies edema, Denies irregular heart rhythm, Denies claudication, Denies dyspnea, Denies dyspnea on exertion, Denies orthopnea, Denies paroxysmal nocturnal dyspnea and Denies slow heart rate Resp Denies cough, Denies dyspnea and Denies dyspnea on exertion Denies urinary incontinence, Denies urinary hesitancy and Denies urinary urgency Musc Denies atrophy, Denies deformity and Denies limited range of motion Physical exam (Primary Care) Vital Signs: Last Vital Signs Temp 97 F 03/15/25 09:16 Pulse 62 03/15/25 09:16 Resp 18 03/15/25 09:16 BP 130/58 L 03/15/25 09:16 Pulse Ox 97 03/15/25 09:16 Oxygen Delivery Method Room Air 03/15/25 09:16 BMI result Body Mass Index 20.4 Tobacco/Smoking Status: Tobacco use Status Tobacco use date assessed 03/15/25 03/15/25 09:17 Patient Tobacco Use Status Never used Tobacco 03/15/25 09:17 e-Cigarette/Vaping Use Never Used 03/15/25 09:17 PHQ-9: PHQ-9 Score PHQ-9: Total score 0 03/15/25 09:17 Depression Screening Interpretation: Negative Thrive Assessment: Date of Thrive Assessment Date Thrive assessed 03/15/25 03/15/25 09:17 Currently or been in a relationship where the following occur: I choose not to answer HENMT Head: Yes normal to inspection, Yes normocephalic and Yes atraumatic Ears: external ears normal Eyes General: appearance normal, both eyes and all related structures Eyelids: Yes eyelids normal Conjunctivae: conjunctivae normal Neck Neck: Yes normal visual inspection and Yes supple Resp Effort & Inspection: normal respiratory effort Auscultation: clear to auscultation bilaterally Cardio Jugular venous distension: no JVD Rate: regular rate Rhythm: regular rhythm Heart sounds: S1 normal heart sound present and S2 normal heart sound present GI Inspection: Yes normal to inspection Palpation (GI): Soft to palpation and nontender Auscultation: normal bowel sounds Skin General skin exam: no rashes or lesions noted Neuro General: no focal motor deficits Extrem General: Yes full ROM Psych Appearance: grossly normal Coding Level of Care Code Est Pt Level 3 (25181) Est Pt Prev Care >65y(53774) Diagnoses Physical exam Z00.00 Chronic GERD K21.9 Additional Codes KWAKU-7 Assessment Billing - KWAKU-7 Assessment Tool: KWAKU-7 Assessment 20626 ([id number]) PHQ-9 - 42994 - PHQ-9 Billing: Yes ([id number]) Time Spent (min) 33 Assessment & Plan Assessment & Plan (1) Physical exam: Code(s): Z00.00 - Encounter for general adult medical examination without abnormal findings Category: Medical (2) Chronic GERD: Code(s): K21.9 - Gastro-esophageal reflux disease without esophagitis Category: Medical Plan The patient will receive tetanus and pneumonia vaccinations as part of her preventative care measures. For her essential hypertension, she will continue her current medication regimen of amlodipine and lisinopril, which has effectively managed her blood pressure. To address her heartburn, a prescription will be provided to help manage the cost of her medications. She is advised to take iron supplements to address her low hemoglobin levels, with a caution about potential constipation as a side effect. Patient was informed and verbally consented to the use of an ambient scribe for clinic note documentation during this visit. During the visit, I discussed the importance of receiving tetanus and pneumonia vaccinations with the patient as part of her preventative care. We reviewed her current medication regimen for hypertension, which is effectively controlling her blood pressure. I also addressed her concerns about heartburn and agreed to provide a prescription to help manage the cost of her medications. Additionally, we discussed her low hemoglobin levels and the need for iron supplementation, while advising her about the potential side effect of constipation. Orders: Orders Complete Blood Count Auto Diff 6 Months D64.9 - Anemia, unspecified IRON PROFILE 6 Months D64.9 - Anemia, unspecified Vitamin B12 and Folate 6 Months E53.8 - Deficiency of other specified B group vitamins Lipid Panel 6 Months E78.00 - Pure hypercholesterolemia, unspecified, E78.5 - Hyperlipidemia, unspecified Vitamin D 25-OH Total 6 Months E55.9 - Vitamin D deficiency, unspecified Comprehensive [place]. Panel Fast 6 Months E78.00 - Pure hypercholesterolemia, unspecified Medications: New ferrous sulfate 325 mg PO DAILY 90 tabs 1RF 90 days omeprazole 20 mg PO DAILY 90 caps 1RF 90 days Patient Instructions: - Receive tetanus and pneumonia vaccinations as recommended. - Continue taking amlodipine and lisinopril as prescribed for blood pressure management. - Use prescribed medication for heartburn as needed. - Take iron supplements daily, separate from heartburn medication, to improve hemoglobin levels.
[2025-03-15 09:16] VITALS: BP 130/58; PULSE 62; RESP 18; TEMP 36.1; O2SAT 97; BMI 20.4
[2025-03-15 09:43] VITALS: BP 130/60
== END 2025-03-15 09:58 | disposition home or self-care (01) ==
LOC: HO.HMCH 09:02
PROVIDERS: PCP Internal Medicine; Visit Provider Internal Medicine
DX: Z00.00 Encounter for general adult medical examination without abnormal findings (principal); K21.9 Gastro-esophageal reflux disease without esophagitis

== ENCOUNTER → 2025-03-15 09:01 | Outpatient (BNVA) | payer OTHER, SELFPAY | PROVIDERS: PCP Internal Medicine; Visit Provider Internal Medicine | DX: Z00.00 Encounter for general adult medical examination without abnormal findings (principal); K21.9 Gastro-esophageal reflux disease without esophagitis; I10 Essential (primary) hypertension; Z79.899 Other long term (current) drug therapy; D64.9 Anemia, unspecified; E53.8 Deficiency of other specified B group vitamins; E78.00 Pure hypercholesterolemia, unspecified | CPT/HCPCS: 96127; 99212; 99397 ==